=== PATIENT | male | born 1935 | race Caucasian/White ===

== ENCOUNTER 2016-07-17 09:06 | Emergency (ER) | payer MEDICARE, OTHER ==
[~2016-07-17] VITALS: Ht 182.9 cm; Wt 88.6 kg
[~2016-07-17 09:06] MED LIST: ASPIRIN 32325 MG/TAB PO; FLONASE NASAL S16 GM NS; HCTZ 25MG25 MG PO; LISINOPRIL20 MG PO; PRILOSEC 20MG20 MG PO; REGLAN 10MG10 MG/TAB PO; SPIRIVA INH IH; ZOCOR80 MG PO; ZYRTEC
[2016-07-17 09:13] VITALS: TEMP 98.4
[2016-07-17 09:42] LABS: BASO # 0.1 (0.0-0.2); BASO % 1.1 % (0.0-2.0); EOS # 0.3 (0.0-0.7); EOS % 3.5 % (0-4.0); GRAN % 54.5 % (42.2-75.2); HEMATOCRIT 45.9 % (42.0-52.0); HEMOGLOBIN 15.3 g/dl (13.5-18.0); LYMPH # 2.3 (1.2-3.4); LYMPH % 31.5 % (20.0-51.0); MEAN CELL VOLUME 90 fl (80.0-100.0); MEAN CORPUSCULAR HEMOGLOBIN 30 pg (27.0-31.0); MEAN CORPUSCULAR HGB CONC 33 g/dl (33.0-37.0); MEAN PLATELET VOLUME 8.9 fl (7.4-10.4); MONO # 0.7 (0.1-0.6); MONO % 9.1 % (1.7-9.3); PLATELET COUNT 237 K/mm3 (130-400); RED BLOOD COUNT 5.09 M/mm3 (4.20-5.60); REDCELL DISTRIBUTION WIDTH-CV 13.5 % (11.5-14.5); WHITE BLOOD COUNT 7.4 K/mm3 (4.8-10.8)
[2016-07-17 09:49] LABS: INR 2.8 (0.8-3.0); PROTHROMBIN TIME 32.2 SECONDS (9.7-12.8)
[2016-07-17 09:51] LABS: PARTIAL THROMBOPLASTIN TIME 44.7 SECONDS (26.0-37.0)
[2016-07-17] MEDS ORDERED: COUMADIN 5MG5 MG/TAB PO (10:20)
[2016-07-17] MEDS ORDERED: COUMADIN 77.5 MG/TAB PO (10:21)
[2016-07-17] MEDS ORDERED: ZESTRIL 20MG TA20 MG PO (10:21)
[2016-07-17] MEDS ORDERED: ASPIRIN 32325 MG/TAB PO (10:22)
[2016-07-17] MEDS ORDERED: PROAIR HFA0.09 MG/AC IH (10:22)
[2016-07-17] MEDS ORDERED: VITAMIN C500 MG PO (10:22)
[2016-07-17] MEDS ORDERED: RT SPIRIVA18 MCG IH (10:23)
[2016-07-17] MEDS ORDERED: METAMUCIL3.4 GM/DOS PO (10:23)
[2016-07-17] MEDS ORDERED: FLONASEALLERGY NS (10:23)
[2016-07-17] MEDS ORDERED: ZYRTEC 10MG10 MG PO (10:24)
[2016-07-17] MEDS ORDERED: LIPITOR20 MG PO (10:24)
[2016-07-17] MEDS ORDERED: KLONOPIN 0.5MG0.5 MG PO (10:25)
[2016-07-17] MEDS ORDERED: CELEXA 20MG20 MG/TAB PO (10:25)
[2016-07-17 10:47] VITALS: BP 140/87; PULSE 55
== END 2016-07-17 10:48 | disposition home or self-care (01) ==
LOC: COL.ER 09:06
PROVIDERS: Emergency Medicine
DX: R04.0 Epistaxis (principal); I10 Essential (primary) hypertension

== ENCOUNTER 2016-07-21 01:03 | Emergency (ER) | payer MEDICARE, OTHER ==
[~2016-07-21] VITALS: Ht 182.9 cm; Wt 88.6 kg
[~2016-07-21 01:03] MED LIST changes: +CELEXA 20MG20 MG/TAB PO; +COUMADIN 5MG5 MG/TAB PO; +COUMADIN 77.5 MG/TAB PO; +FLONASEALLERGY NS; +KLONOPIN 0.5MG0.5 MG PO; +LIPITOR20 MG PO; +METAMUCIL3.4 GM/DOS PO; +PROAIR HFA0.09 MG/AC IH; +RT SPIRIVA18 MCG IH; +VITAMIN C500 MG PO; +ZESTRIL 20MG TA20 MG PO; +ZYRTEC 10MG10 MG PO
[2016-07-21 02:25] VITALS: BP 143/87; PULSE 60
== END 2016-07-21 03:00 | disposition home or self-care (01) ==
LOC: COL.ER 01:03
DX: R04.0 Epistaxis (principal); Z79.01 Long term (current) use of anticoagulants

== ENCOUNTER 2016-07-24 03:28 | Emergency (ER) | payer MEDICARE, OTHER ==
[~2016-07-24] VITALS: Ht 182.9 cm; Wt 88.5 kg
[2016-07-24 03:31] VITALS: BP 126/75; TEMP 98.2
[2016-07-24 04:27] LABS: HEMATOCRIT 40.1 % (42.0-52.0); HEMOGLOBIN 13.4 g/dl (13.5-18.0); MEAN CELL VOLUME 89 fl (80.0-100.0); MEAN CORPUSCULAR HEMOGLOBIN 30 pg (27.0-31.0); MEAN CORPUSCULAR HGB CONC 33 g/dl (33.0-37.0); MEAN PLATELET VOLUME 9.2 fl (7.4-10.4); PLATELET COUNT 226 K/mm3 (130-400); RED BLOOD COUNT 4.53 M/mm3 (4.20-5.60); REDCELL DISTRIBUTION WIDTH-CV 13.3 % (11.5-14.5); WHITE BLOOD COUNT 14.9 K/mm3 (4.8-10.8)
[2016-07-24 04:31] LABS: ADD PATHOLOGY DIFF REVIEW NO
[2016-07-24 04:32] LABS: INR 2.1 (0.8-3.0); PROTHROMBIN TIME 24.1 SECONDS (9.7-12.8)
[2016-07-24 05:59] LABS: BAND 17 % (0-10); EOSINOPHIL 1 % (0-4); NEUTROPHILS 61 % (42.0-75.2); TOTAL CELLS COUNTED 100
[2016-07-24] MEDS ORDERED: AMOXICILLIN 8751 TAB PO (06:13)
[2016-07-24 06:38] VITALS: PULSE 2
== END 2016-07-24 06:38 | disposition home or self-care (01) ==
LOC: COL.ER 03:28
PROVIDERS: Emergency Medicine
DX: R04.0 Epistaxis (principal); J32.9 Chronic sinusitis, unspecified; Z86.718 Personal history of other venous thrombosis and embolism; Z79.01 Long term (current) use of anticoagulants; Z86.711 Personal history of pulmonary embolism; Z79.82 Long term (current) use of aspirin

== ENCOUNTER → 2016-08-25 | Outpatient (REF) ==
[~2016-08-25] MED LIST changes: +AMOXICILLIN 8751 TAB PO
== END ==
LOC: ZLAB.WCH 18:09
DX: Z01.89 Encounter for other specified special examinations (principal)
CPT/HCPCS: G0103

== ENCOUNTER 2017-03-28 08:00 | Outpatient (RCR) | payer MEDICARE, OTHER | END 2017-04-05 09:51 | disposition home or self-care (01) | LOC: WSPT 08:00 | DX: M79.604 Pain in right leg (principal); M79.605 Pain in left leg | CPT/HCPCS: G8978-GP; G8979-GP; G8980-GP ==

== ENCOUNTER 2017-05-07 17:39 | Emergency (ER) | payer MEDICARE, OTHER ==
[~2017-05-07] VITALS: Ht 182.9 cm; Wt 90.9 kg
[2017-05-07 17:42] VITALS: TEMP 99.3
[2017-05-07 18:28] LABS: BASO # 0.1 (0.0-0.2); BASO % 1.1 % (0.0-2.0); EOS % 0.6 % (0-4.0); GRAN # 4.9 (1.4-6.5); GRAN % 68.7 % (42.2-75.2); HEMATOCRIT 40.6 % (42.0-52.0); HEMOGLOBIN 13.8 g/dl (13.5-18.0); LYMPH # 0.8 (1.2-3.4); LYMPH % 10.6 % (20.0-51.0); MEAN CELL VOLUME 87 fl (80.0-100.0); MEAN CORPUSCULAR HEMOGLOBIN 30 pg (27.0-31.0); MEAN CORPUSCULAR HGB CONC 34 g/dl (33.0-37.0); MONO # 1.3 (0.1-0.6); MONO % 17.9 % (1.7-9.3); PLATELET COUNT 191 K/mm3 (130-400); RED BLOOD COUNT 4.66 M/mm3 (4.20-5.60); REDCELL DISTRIBUTION WIDTH-CV 13.8 % (11.5-14.5)
[2017-05-07 18:41] LABS: ALANINE AMINOTRANSFERASE 37 U/L (21-72); ALBUMIN 3.6 gm/dL (3.5-5.0); ALKALINE PHOSPHATASE 70 U/L (50-136); ANION GAP 9 mmol/L (7-16); AST,SGOT 30 U/L (15-37); BILIRUBIN,TOTAL 0.9 mg/dL (0.0-1.0); BLOOD UREA NITROGEN 13 mg/dL (9-20); CALCIUM 8.4 mg/dL (8.4-10.2); CARBON DIOXIDE 21 mmol/L (22-30); CHLORIDE 93 mmol/L (98-107); CREATININE, serum 0.78 mg/dL (0.66-1.25); GLUCOSE 102 mg/dL (74-106); POTASSIUM 3.8 mmol/L (3.4-5.0); SODIUM 124 mmol/L (137-145); TOTAL PROTEIN 6.7 gm/dL (6.4-8.2)
[2017-05-07 18:45] LABS: INFLUENZA A NEGATIVE; INFLUENZA B NEGATIVE
[2017-05-07 18:52] LABS: TROPONIN-I < 0.012 ng/mL (0.000-0.034)
[2017-05-07] MEDS ORDERED: TAMIFLU 75MG75 MG PO ×2 (19:34→19:54)
[2017-05-07 19:55] VITALS: BP 157/94; PULSE 65
== END 2017-05-07 19:55 | disposition home or self-care (01) ==
LOC: COL.ER 17:39
PROVIDERS: Emergency Medicine
DX: J11.1 Influenza due to unidentified influenza virus with other respiratory manifestations (principal); E87.1 Hypo-osmolality and hyponatremia; J44.9 Chronic obstructive pulmonary disease, unspecified; Z87.891 Personal history of nicotine dependence; Z79.01 Long term (current) use of anticoagulants; Z86.718 Personal history of other venous thrombosis and embolism; Z86.711 Personal history of pulmonary embolism
CPT/HCPCS: J1885; J7030

== ENCOUNTER → 2019-01-23 | Outpatient (CLI) | payer MEDICARE, OTHER ==
[~2019-01-23] MED LIST changes: +TAMIFLU 75MG75 MG PO
== END ==
LOC: COL.VAS 10:56
DX: J44.9 Chronic obstructive pulmonary disease, unspecified (principal); I08.1 Rheumatic disorders of both mitral and tricuspid valves

== ENCOUNTER 2020-10-27 17:04 | Emergency (ER) | payer MEDICARE, OTHER ==
[~2020-10-27] VITALS: Ht 182.9 cm; Wt 96.8 kg
[2020-10-27 18:55] LABS: BASO % 0.4 % (0.0-2.0); GRAN # 8.2 (1.4-6.5); GRAN % 81.8 % (42.2-75.2); HEMATOCRIT 41.1 % (42.0-52.0); LYMPH # 0.8 (1.2-3.4); LYMPH % 7.7 % (20.0-51.0); MEAN CELL VOLUME 78 fl (80.0-100.0); MEAN CORPUSCULAR HEMOGLOBIN 25 pg (27.0-31.0); MEAN CORPUSCULAR HGB CONC 32 g/dl (33.0-37.0); MONO # 0.9 (0.1-0.6); MONO % 8.8 % (1.7-9.3); PLATELET COUNT 235 K/mm3 (130-400); REDCELL DISTRIBUTION WIDTH-CV 15.9 % (11.5-14.5)
[2020-10-27 19:00] LABS: MUCOUS Present /lpf; PH 6 (5-8); SQUAMOUS EPITHELIAL 0-2 /hpf; URINE APPEARANCE Hazy; URINE BACTERIA None Seen /hpf; URINE BILIRUBIN Negative (NEGATIVE); URINE BLOOD 1+ (NEGATIVE); URINE COLOR Yellow; URINE GLUCOSE Negative (NEGATIVE); URINE KETONE 1+ (NEGATIVE); URINE LEUKOCYTE ESTERASE Negative (NEGATIVE); URINE NITRATE Negative (NEGATIVE); URINE PROTEIN(semi-quant) 1+ (NEGATIVE); URINE RBC 20-50 /hpf
[2020-10-27 19:06] LABS: ALBUMIN 4.1 gm/dL (3.5-5.0); BILIRUBIN,TOTAL 0.7 mg/dL (0.0-1.0); CALCIUM 8.9 mg/dL (8.4-10.2); CREATININE, serum 0.93 (0.66-1.25); TOTAL PROTEIN 7.9 gm/dL (6.4-8.2)
[2020-10-27 19:35] LABS: COLLECTION METHOD CATHETER
[2020-10-28 03:45] VITALS: BP 155/81; PULSE 83; TEMP 99
== END 2020-10-27 17:40 | disposition left against medical advice (07) ==
LOC: COL.ER 17:04
PROVIDERS: Nurse Practitioner Primary Care
DX: E87.1 Hypo-osmolality and hyponatremia (principal); I48.91 Unspecified atrial fibrillation; F41.9 Anxiety disorder, unspecified; E78.5 Hyperlipidemia, unspecified; Z20.822 Contact with and (suspected) exposure to COVID-19; Z79.01 Long term (current) use of anticoagulants; Z79.899 Other long term (current) drug therapy
CPT/HCPCS: J7030; Q9967

== ENCOUNTER → 2020-11-01 | Outpatient (REF) | LOC: ZLAB.WCH 09:31 | DX: Z01.89 Encounter for other specified special examinations (principal) ==